=== PATIENT | female | born 1950 | race Caucasian/White ===

== ENCOUNTER 2017-01-01 10:23 | Emergency (ER) | payer BC ==
--- NOTE | 2017-01-01 11:21 | ED Physician Documentation ---
History of Present Illness - Stated complaint Stated Complaint: SWELLING ABDOMEN AREA - Chief complaint Chief Complaint: Abd Pain - History obtained from History obtained from: Patient, Family - History of Present Illness Timing: How many weeks ago (1) - Additonal information Additional information: 66-year-old female with a history of endometrial cancer with pulmonary metastases and vaginal recurrence has developed abdominal swelling decreased appetite and abdominal pain.She has recently finished a course of palliative radiation therapy for a vaginal recurrence of her cancer. Review of Systems Constitutional: reports: Fatigue, Sweats. denies: Fever Eyes: denies: Decreased vision Ears: denies: Ear pain Nose: denies: Rhinorrhea / runny nose, Congestion Throat: denies: Sore throat Cardiac: denies: Chest pain / pressure, Palpitations Respiratory: reports: Dyspnea. denies: Cough, Wheezing GI: reports: Abdominal Pain, Abdominal Swelling, Nausea. denies: Vomiting, Constipation, Diarrhea : denies: Dysuria, Frequency Skin: denies: Rash Musculoskeletal: reports: Back pain. 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 - Present Medications Home Medications: Ambulatory Orders Medication Instructions Recorded Confirmed Hydrocodone/Acetaminophen 1 - 2 tab PO Q4H PRN 12/30/16 12/30/16 [Hydrocodone-APAP 5-300] LORazepam [Ativan] 0.5 - 1 mg PO RTQPM PRN 12/30/16 12/30/16 Furosemide [Lasix] 40 mg PO DAILY #20 tablet 01/01/17 Potassium Chloride [K-Dur] 20 meq PO DAILY #20 tablet 01/01/17 Sulfamethoxazole/Trimethoprim 1 each PO BID #14 tablet 01/01/17 [Sulfamethoxazole-Tmp Ds Tablet] - Allergies Allergies/Adverse Reactions: Allergies Allergy/AdvReac Type Severity Reaction Status Date / Time No Known Drug Allergies Allergy Verified 01/01/17 10:31 - Social History Does the pt smoke?: No Smoking Status: Never smoker Does the pt drink ETOH?: No Does the pt have substance abuse?: No - Immunizations Immunizations are current?: Yes PD ED PE NORMAL - Vitals Vital signs reviewed: Yes (Tachycardic and hypertensive) - General General: No acute distress, Well developed/nourished - HEENT HEENT: Atraumatic, PERRL - Neck Neck: Supple, no meningeal sign - Cardiac Cardiac: No murmur, Other (Tachycardia to 100) - Respiratory Respiratory: No respiratory distress, Clear bilaterally - Abdomen Abdomen: Soft, Other - Back Back: No CVA TTP, No spinal TTP - Derm Derm: Normal color, Warm and dry, No rash - Extremities Extremities: No deformity, Other (There is pedal edema bilaterally) - Neuro Neuro: Alert and oriented X 3, No motor deficit, No sensory deficit, Normal speech - Psych Psych: Normal mood, Normal affect Results - Vitals Vitals: Vital Signs - 24 hr 01/01/17 01/01/17 01/01/17 10:28 12:17 13:59 Temperature 36.7 C Heart Rate 110 H 84 102 H Respiratory 20 20 16 Rate Blood Pressure 135/85 H 127/70 138/82 H O2 Saturation 96 97 94 Oxygen O2 Source Room air - Labs Labs: Laboratory Tests 01/01/17 01/01/17 01/01/17 11:30 11:30 11:30 WBC 6.5 RBC 4.00 L Hgb 12.5 Hct 37.1 MCV 92.6 MCH 31.2 H MCHC 33.7 RDW 12.9 Plt Count 291 MPV 8.1 Neut # 5.0 Lymph # 0.6 L [place] # 0.8 Eos # 0.1 Baso # 0.1 Absolute Nucleated RBC 0.00 Nucleated RBCs 0.0 Sodium 137 Potassium 3.5 Chloride 98 L Carbon Dioxide 28 Anion Gap 11.0 BUN 20 Creatinine 0.6 Estimated GFR (MDRD) 101 Glucose 109 H Calcium 9.0 Total Bilirubin 0.8 AST 18 ALT 15 Alkaline Phosphatase 67 Total Protein 6.0 L Albumin 3.0 L Globulin 3.0 Albumin/Globulin Ratio 1.0 Lipase 24 Urine Color YELLOW Urine Clarity HAZY Urine pH 6.0 Ur Specific [place] 1.020 Urine Protein NEGATIVE Urine Glucose (UA) NEGATIVE Urine Ketones 15 H Urine Occult Blood SMALL H Urine Nitrite NEGATIVE Urine Bilirubin NEGATIVE Urine Urobilinogen 0.2 (NORMAL) Ur Leukocyte Esterase SMALL H Urine RBC 0-5 Urine WBC 11-25 H Ur Squamous Epith Cells RARE Squamous Urine Bacteria Few Urine Mucus Moderate Strands Ur Microscopic Review INDICATED Urine Culture Comments INDICATED PD MEDICAL DECISION MAKING - ED course Complexity details: reviewed old records, reviewed results, re-evaluated patient , considered differential, d/w patient, d/w family ED course: 66-year-old female with recurrent uterine cancer has developed ascites and is having decreased appetite abdominal swelling discomfort and shortness of breath.She has done some palliative radiation therapy for recurrence of cancer in the vaginal area she has known metastases to the lungs. She had done the palliative radiation therapy and not chemotherapy.Here in the emergency room today she on examination appears to have pleural effusion on the right and this is confirmed on x-ray with bilateral pleural effusions that are larger on the right than left but not overwhelming. She does have ascites on bedside examination the ascites is not tense the abdomen is distended and the patient is uncomfortable. She does have some trace edema in her legs as well and here in the emergency department she is administered Lasix intravenously. We did discuss with her that this will be dehydrating and she will need to take some potassium as well. We discussed palliative paracentesis and she is not ready at this time for a paracentesis. She does not require thoracentesis today and she may require both of these procedures in the near future. We discussed access point for this being through interventional radiology through the oncology clinic as she may also benefit from palliative chemotherapy. Today she has urinary tract infection as well and she is administered intravenous Rocephin. Departure - Departure Disposition: 01 Home, Self Care Clinical Impression: Pleural effusion Urinary tract infection Qualifiers: Urinary tract infection type: acute cystitis Hematuria presence: without hematuria Qualified Code(s): N30.00 - Acute cystitis without hematuria Ascites Qualifiers: Ascites type: malignant Qualified Code(s): R18.0 - Malignant ascites Instructions: ED UTI Cystitis Female, ED Effusion Pleural, ED Ascites Follow-Up: Juanita Garg PA-C [Primary Care Provider] - Prescriptions: Potassium Chloride [K-Dur] 20 meq PO DAILY #20 tablet Furosemide [Lasix] 40 mg PO DAILY #20 tablet Sulfamethoxazole/Trimethoprim [Sulfamethoxazole-Tmp Ds Tablet] 1 each PO BID # 14 tablet Discharge Date/Time: 01/01/17 14:28
[2017-01-01] MEDS ORDERED: SODIUM CHLORIDE FLUSH 0.9% 10 ML SYRINGE IVP ONE (11:28)
[2017-01-01] MEDS ORDERED: FUROSEMIDE 40 MG/4 ML VIAL IVP STA (11:35)
[2017-01-01] MEDS ORDERED: FUROSEMIDE 40 MG/4 ML VIAL ONE (11:48)
--- NOTE | 2017-01-01 11:54 | XRAY Preliminary Report ---
Exam: XR Chest 2 View PA/LAT IMPRESSION: Small, right larger than left pleural effusions with adjacent opacity/atelectasis. [facility] SITE ID: [id number]
--- NOTE | 2017-01-01 11:57 | XRAY Report ---
EXAM: CHEST RADIOGRAPHY EXAM DATE: 01/01/2017 11:20 AM. CLINICAL HISTORY: Decreased breath sounds right. . COMPARISON: 03/30/2012. TECHNIQUE: 2 views. FINDINGS: Lungs/Pleura: There are small bilateral pleural effusions with adjacent opacity/atelectasis, right gr eater than left. No pneumothorax. Mediastinum: Heart and mediastinal contours are unremarkable. Other: Right chest port with distal catheter tip at the cavoatrial junction. IMPRESSION: Small, right larger than left pleural effusions with adjacent opacity/atelectasis. [facility] Referring Provider Line: [phone] SITE ID: [id number]
[2017-01-01 11:58] LABS: BASOPHILS # (AUTO) 0.1 10^3/uL (0.0-0.1); BASOPHILS % (AUTO) 0.8 %; EOSINOPHILS # (AUTO) 0.1 10^3/uL (0.0-0.7); HCT - HEMATOCRIT 37.1 % (37.0-47.0); HGB - HEMOGLOBIN 12.5 g/dL (12.0-16.0); LYMPHOCYTES # (AUTO) 0.6 10^3/uL (1.5-3.5); LYMPHOCYTES % (AUTO) 9.6 %; MEAN CORPUSCULAR HEMOGLOBIN 31.2 pg (27.0-31.0); MEAN CORPUSCULAR HGB CONC 33.7 g/dL (32.0-36.0); MEAN CORPUSCULAR VOLUME 92.6 fL (81.0-99.0); MEAN PLATELET VOLUME 8.1 fL (7.9-10.8); MONOCYTES # (AUTO) 0.8 10^3/uL (0.0-1.0); MONOCYTES % (AUTO) 12.1 %; NEUTROPHILS % (AUTO) 76.5 %; RED CELL DISTRIBUTION WIDTH 12.9 % (12.0-15.0); UNCORRECTED WHITE BLOOD COUNT 6.5 x10^3/uL; WHITE BLOOD COUNT 6.5 x10^3/uL (4.8-10.8)
[2017-01-01 12:11] LABS: BILIRUBIN,TOTAL 0.8 mg/dL (0.2-1.0); CREATININE 0.6 mg/dL (0.4-1.0); POTASSIUM 3.5 mmol/L (3.5-5.0)
[2017-01-01 12:40] LABS: BILIRUBIN,URINE NEGATIVE (NEGATIVE); UA w/ MICROSCOPIC CHARGE YES
[2017-01-01 12:42] LABS: UR CULTURE IF IND INDICATED
[2017-01-01] MEDS ORDERED: cefTRIAXone 1 GM in SODIUM CHLORIDE 0.9% MINIBAG 100 ML IV STA (12:45)
[2017-01-01] MEDS ORDERED: cefTRIAXone 1 GM VIAL ONE (13:09)
[2017-01-01 14:00] VITALS: BP 138/82
== END 2017-01-01 14:28 | disposition home or self-care (01) ==
LOC: ED 10:23
DX: N30.00 Acute cystitis without hematuria (principal); C54.1 Malignant neoplasm of endometrium; C78.00 Secondary malignant neoplasm of unspecified lung; J90 Pleural effusion, not elsewhere classified; Z92.3 Personal history of irradiation
CPT/HCPCS: 36415; 71020; 80053; 81001; 81003; 83690; 85025; 87086; 96365; 96375; 99283; 99284

== ENCOUNTER 2017-01-03 11:47 | Emergency (ER) | payer BC ==
--- NOTE | 2017-01-03 15:32 | ED Physician Documentation ---
PD HPI NVD - Stated complaint Stated Complaint: VOMITTING, BLOATING, COUGH - Chief complaint Chief Complaint: Abd Pain - History obtained from History obtained from: Patient - History of Present Illness Timing - onset: How many weeks ago (1) Timing - duration: Weeks (1) Timing - details: Gradual onset, Waxing and waning Associated symptoms: Abdominal pain (has had feeling of abd fullness and bloating with vomiting and poor PO tolerance.). No: Fever Contributing factors: No: Sick contact, Bad food Improved by: Vomiting Worsened by: Eating Recently seen: Emergency Dept Review of Systems Constitutional: denies: Fever, Chills Nose: denies: Rhinorrhea / runny nose, Congestion Throat: denies: Sore throat Cardiac: denies: Chest pain / pressure Respiratory: denies: Cough GI: reports: Abdominal Pain, Abdominal Swelling, Nausea, Vomiting. denies: Constipation, Diarrhea : denies: Dysuria, Frequency Skin: denies: Rash, Lesions Neurologic: reports: Generalized weakness. 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 - Present Medications Home Medications: Ambulatory Orders Medication Instructions Recorded Confirmed Hydrocodone/Acetaminophen 1 - 2 tab PO Q4H PRN 12/30/16 01/03/17 [Hydrocodone-APAP 5-300] LORazepam [Ativan] 0.5 - 1 mg PO RTQPM PRN 12/30/16 01/03/17 Furosemide [Lasix] 40 mg PO DAILY #20 tablet 01/01/17 01/03/17 Potassium Chloride [K-Dur] 20 meq PO DAILY #20 tablet 01/01/17 01/03/17 Sulfamethoxazole/Trimethoprim 1 each PO BID #14 tablet 01/01/17 01/03/17 [Sulfamethoxazole-Tmp Ds Tablet] Famotidine [Pepcid] 20 mg PO BID #30 tablet 01/03/17 Metoclopramide [Reglan] 10 mg PO Q6H #20 tablet 01/03/17 - Allergies Allergies/Adverse Reactions: Allergies Allergy/AdvReac Type Severity Reaction Status Date / Time No Known Drug Allergies Allergy Verified 01/01/17 10:31 - Social History Does the pt smoke?: No Smoking Status: Never smoker Does the pt drink ETOH?: No Does the pt have substance abuse?: No - Family History Family history: reports: Non contributory - Immunizations Immunizations are current?: Yes PD ED PE NORMAL - Vitals Vital signs reviewed: Yes - General General: Alert and oriented X 3, Well developed/nourished - HEENT HEENT: PERRL (nonicteric), Ears normal, Moist mucous membranes, Pharynx benign - Neck Neck: Supple, no meningeal sign, No adenopathy - Cardiac Cardiac: RRR, No murmur - Respiratory Respiratory: Clear bilaterally - Abdomen Abdomen: Soft, Other (distended moderately with shifting dullness to percussion. generally tender without focal tenderness. No percussion tenderness. Scattered but decreased bowel sounds. ) - Female Female : Deferred - Rectal Rectal: Deferred - Back Back: No CVA TTP - Derm Derm: Normal color, Warm and dry - Extremities Extremities: No edema, No calf tenderness / cord - Neuro Neuro: Alert and oriented X 3, No motor deficit, Normal speech Results - Vitals Vitals: Oxygen O2 Source Room air - Labs Labs: Laboratory Tests 01/03/17 01/03/17 16:48 16:48 WBC 7.9 RBC 3.89 L Hgb 12.2 Hct 36.3 L MCV 93.5 MCH 31.4 H MCHC 33.6 RDW 12.7 Plt Count 320 MPV 8.2 Neut # 6.4 Lymph # 0.6 L [place] # 0.7 Eos # 0.0 Baso # 0.0 Absolute Nucleated RBC 0.00 Nucleated RBCs 0.1 Sodium 134 L Potassium 3.6 Chloride 96 L Carbon Dioxide 28 Anion Gap 10.0 BUN 21 H Creatinine 0.9 Estimated GFR (MDRD) 63 L Glucose 105 H Calcium 8.4 L Magnesium 1.9 Total Bilirubin 1.1 H AST 17 ALT 14 Alkaline Phosphatase 68 Total Protein 5.8 L Albumin 2.9 L Globulin 2.9 Albumin/Globulin Ratio 1.0 Lipase 20 L - Rads (name of study) abd and chest CT Radiology: Prelim report reviewed (multiple lung nodules, also multiple peritoneal and omental lesions c/w mets) Procedures - Paracentesis Preparation: Consent obtained (verbal), Ultrasound guidance, Sterile prep and drape, Local anesthesia Location: RLQ Technique: Catheter over needle Fluid: Clear (I got initial fluid back in syringe as inserting the catheter, but then did not get further fluid out once the catheter was advanced over the needle. U/S showed it to be in the peritoneal cavity and not near loop of bowel , so I don't know why it did not drain. We opted to discontinue at that point. No signs of bleeding. No increased abd pain. So only about 10 ml of fluid obtained.), Volume - enter cc (10). No: Sent for cell count Aftercare: Dressing applied, Other (unable to get flow out from catheter once advanced, even though seemed to be in correct position. Procedure discontinued at that point.) PD MEDICAL DECISION MAKING - ED course Complexity details: reviewed results (CT showing that her cancer has progressed with multiple mets in peritoneum and omentum and lung. Presume ascites is then from those irritations (carcinomatosis) and may be resulting in ileus pattern. CT does not show any obstruction pattern. ), considered differential, d/w patient, d/w [facility] consultant (Dr. Mccromick ([facility]?) Oncology, who thought her symptoms might be ileus due to the carcinomatosis, which would seem reasonable since she does not have tense ascites, but could be from the ascites. She suggested paracentesis could be worth a try to see if helps symptoms. ) Departure - Departure Disposition: 01 Home, Self Care Clinical Impression: Abdominal carcinomatosis Ascites Qualifiers: Ascites type: malignant Qualified Code(s): R18.0 - Malignant ascites Vomiting Qualifiers: Vomiting type: unspecified Vomiting Intractability: non-intractable Nausea presence: with nausea Qualified Code(s): R11.2 - Nausea with vomiting, unspecified Abdominal pain Qualifiers: Abdominal location: generalized Qualified Code(s): R10.84 - Generalized abdominal pain Condition: Stable Record reviewed to determine appropriate education?: Yes Follow-Up: Juanita Garg PA-C [Primary Care Provider] - oJsep Reilly MD [Physician No Access] - Prescriptions: Famotidine [Pepcid] 20 mg PO BID #30 tablet Metoclopramide [Reglan] 10 mg PO Q6H #20 tablet Comments: Continue usual medications. Add famotidine twice daily for the next 7-10 days. Metoclopramide 4 times a day to help reduce nausea and improve peristalsis. Call Dr. Reilly's office tomorrow for follow-up and further evaluation and treatment. Discharge Date/Time: 01/03/17 22:20
[2017-01-03] MEDS ORDERED: HYDROmorphone 1 MG/ML CARPUJECT IVP STA (15:52)
[2017-01-03] MEDS ORDERED: ONDANSETRON 4 MG/2 ML VIAL IVP STA ×2 (15:52→20:46)
[2017-01-03] MEDS ORDERED: SODIUM CHLORIDE 0.9% 1,000 ML IV ONE ×2 (15:52→18:44)
[2017-01-03] MEDS ORDERED: HYDROmorphone 1 MG/ML CARPUJECT ONE (16:30)
[2017-01-03] MEDS ORDERED: ONDANSETRON 4 MG/2 ML VIAL ONE ×2 (16:30→20:53)
[2017-01-03] MEDS ORDERED: SODIUM CHLORIDE FLUSH 0.9% 10 ML SYRINGE IVP ONE ×2 (16:31→20:53)
[2017-01-03 17:03] LABS: BASOPHILS % (AUTO) 0.6 %; EOSINOPHILS % (AUTO) 0.2 %; HCT - HEMATOCRIT 36.3 % (37.0-47.0); HGB - HEMOGLOBIN 12.2 g/dL (12.0-16.0); LYMPHOCYTES # (AUTO) 0.6 10^3/uL (1.5-3.5); LYMPHOCYTES % (AUTO) 8.3 %; MEAN CORPUSCULAR HEMOGLOBIN 31.4 pg (27.0-31.0); MEAN CORPUSCULAR HGB CONC 33.6 g/dL (32.0-36.0); MEAN CORPUSCULAR VOLUME 93.5 fL (81.0-99.0); MEAN PLATELET VOLUME 8.2 fL (7.9-10.8); MONOCYTES # (AUTO) 0.7 10^3/uL (0.0-1.0); MONOCYTES % (AUTO) 9.1 %; NEUTROPHILS # (AUTO) 6.4 10^3/uL (1.5-6.6); NEUTROPHILS % (AUTO) 81.8 %; NUCLEATED RED BLOOD CELLS AUTO 0.1 /100WBC; RED BLOOD COUNT 3.89 10^6/uL (4.20-5.40); RED CELL DISTRIBUTION WIDTH 12.7 % (12.0-15.0); UNCORRECTED WHITE BLOOD COUNT 7.9 x10^3/uL; WHITE BLOOD COUNT 7.9 x10^3/uL (4.8-10.8)
[2017-01-03 17:08] LABS: BILIRUBIN,TOTAL 1.1 mg/dL (0.2-1.0); CALCIUM 8.4 mg/dL (8.5-10.3); CREATININE 0.9 mg/dL (0.4-1.0); MAGNESIUM 1.9 mg/dL (1.7-2.8); POTASSIUM 3.6 mmol/L (3.5-5.0); TOTAL PROTEIN 5.8 g/dL (6.7-8.2)
[2017-01-03] MEDS ORDERED: IOPAMIDOL-300 100 ML VIAL ONE (17:50)
[2017-01-03] MEDS ORDERED: IOPAMIDOL-300 100 ML VIAL IVP ONE (18:22)
--- NOTE | 2017-01-03 18:47 | CT Preliminary Report ---
Exam: CT Chest W/ IMPRESSION: 1. Numerous pulmonary nodules, most compatible with metastatic disease. 2. Right basilar consolidation. Small bilateral pleural effusions. [facility] SITE ID: [id number]
--- NOTE | 2017-01-03 18:50 | CT Report ---
EXAM: CT CHEST EXAM DATE: 01/03/2017 06:28 PM. CLINICAL HISTORY: Cough and dyspnea; h/o pelvic cancer. COMPARISONS: None. TECHNIQUE: Routine helical CT imaging was performed through the chest. IV contrast: 100 cc Isovue-300 . Reconstructions: Sagittal, coronal, and MIP. In accordance with CT protocol optimization, one or more of the following dose reduction techniques w ere utilized for this exam: automated exposure control, adjustment of mA and/or KV based on patient s ize, or use of iterative reconstructive technique. FINDINGS: Lungs/Pleura: Numerous nodules are present throughout both lungs ranging from tiny to 11 mm. Consolid ation in the right base. Small pleural effusions, right more than left. No pneumothorax. Mediastinum: Normal heart size. No pericardial effusion. No coronary artery calcifications. No lympha denopathy. Bones: Unremarkable. Visualized Abdomen: See separate report. Other: Right Port-A-Cath. IMPRESSION: 1. Numerous pulmonary nodules, most compatible with metastatic disease. 2. Right basilar consolidation. Small bilateral pleural effusions. [facility] Referring Provider Line: [phone] SITE ID: [id number]
--- NOTE | 2017-01-03 19:00 | CT Preliminary Report ---
Exam: CT Abdomen/Pelvis W/ IMPRESSION: 1. Extensive metastatic disease to the omentum and peritoneum with moderate ascites. 2. Other chronic or incidental findings. [facility] SITE ID: [id number]
--- NOTE | 2017-01-03 19:02 | CT Report ---
EXAM: CT ABDOMEN AND PELVIS EXAM DATE: 01/03/2017 06:27 PM. CLINICAL HISTORY: Abd pain and bloating; post RT for uterine CA. COMPARISONS: 09/14/2016. TECHNIQUE: Routine helical CT imaging was performed through the abdomen and pelvis. IV contrast: 100 cc Isovue-300. Enteric contrast: No. Reconstructions: Coronal and sagittal. In accordance with CT protocol optimization, one or more of the following dose reduction techniques w ere utilized for this exam: automated exposure control, adjustment of mA and/or KV based on patient s ize, or use of iterative reconstructive technique. FINDINGS: Lung Bases: See separate report. Liver: Cysts and hemangioma as previously described. Otherwise unremarkable. Gallbladder/Bile Ducts: Unremarkable. Spleen: Normal. Pancreas: Normal. Adrenal Glands: Normal. Kidneys: Tiny right renal cyst. Otherwise unremarkable. No masses or hydronephrosis. Peritoneal Cavity/Bowel: Moderate amount of ascites. No free air. Prominent omental caking with numer ous nodular densities anteriorly and along the mural surface a lesion in the anterior right upper angelica drant measures 17 mm on axial image 20. Numerous small densities in the mesentery may represent mesen teric lymphadenopathy. No periaortic lymphadenopathy. Mild colonic diverticulosis. Normal appendix. N o bowel dilation. Pelvic Organs: Unremarkable decompressed urinary bladder. Absent uterus. Vasculature: No aneurysms or other significant abnormality. Bones: No significant abnormality. Other: None. IMPRESSION: 1. Extensive metastatic disease to the omentum and peritoneum with moderate ascites. 2. Other chronic or incidental findings. [facility] Referring Provider Line: [phone] SITE ID: [id number]
[2017-01-03] MEDS ORDERED: MAG HYDROX/AL HYDROX/SIMETH 30 ML UDC PO STA (20:33)
[2017-01-03] MEDS ORDERED: MAG HYDROX/AL HYDROX/SIMETH 30 ML UDC ONE (20:38)
[2017-01-03] MEDS ORDERED: PROMETHAZINE INJ 12.5 MG in SODIUM CHLORIDE 0.9% 50 ML IV STA (20:46)
[2017-01-03] MEDS ORDERED: PROMETHAZINE 25 MG/1 ML VIAL ONE (20:53)
[2017-01-03] MEDS ORDERED: SODIUM CHLORIDE 0.9% MINIBAG 100 ML IV ONE (20:53)
[2017-01-03] MEDS ORDERED: FAMOTIDINE 20 MG TABLET PO STA (21:31)
[2017-01-03] MEDS ORDERED: FAMOTIDINE 20 MG TABLET ONE (21:50)
[2017-01-03 22:36] VITALS: BP 120/60
== END 2017-01-03 22:20 | disposition home or self-care (01) ==
LOC: ED 11:47
DX: C80.0 Disseminated malignant neoplasm, unspecified (principal); C78.6 Secondary malignant neoplasm of retroperitoneum and peritoneum; R18.0 Malignant ascites; R11.2 Nausea with vomiting, unspecified; R10.84 Generalized abdominal pain
CPT/HCPCS: 36415; 49083; 71260; 74177; 80053; 83690; 83735; 85025; 96374; 96375; 96376; 99284; A9270; J1170; J7040; Q9967; 49082

== ENCOUNTER 2017-01-26 16:09 | Outpatient (CLI) | payer BC ==
[2017-01-26 15:46] LABS: INR 1.2 (0.8-1.2); PT - PROTHROMBIN TIME 13.3 secs (9.9-12.6)
[2017-01-26 15:53] LABS: PARTIAL THROMBOPLASTIN TIME 24.4 secs (24.9-33.3)
== END 2017-01-26 16:10 | disposition home or self-care (01) ==
LOC: LAB.R 16:09
PROVIDERS: ATTEND Nurse Practitioner Adult Health
DX: R18.0 Malignant ascites (principal)
CPT/HCPCS: 85610; 85730

== ENCOUNTER 2017-01-27 08:12 | Outpatient (CLI) | payer BC ==
--- NOTE | 2017-01-27 10:11 | Ultrasound Report ---
PARACENTESIS WITH ULTRASOUND GUIDANCE: 01/27/2017 CLINICAL INDICATION: Malignant ascites. FINDINGS: Following obtaining informed consent, a suitable site in the patient's right lower quadran t was selected with ultrasound. The skin was prepped and draped in the usual sterile fashion. The s kin and soft tissues were anesthetized with buffered lidocaine. A [id number] catheter was inser sherri into the peritoneal cavity, and approximately 2700 mL of fluid was removed without difficulty. T he patient tolerated the procedure well. No immediate complications. IMPRESSION: SUCCESSFUL THERAPEUTIC PARACENTESIS, YIELDING APPROXIMATELY 2700 ML OF FLUID. JOB #: [id number] EXT JOB #:[id number]
[2017-01-27 10:33] VITALS: BP 104/61
[2017-01-27] MEDS ORDERED: BUFFERED LIDOCAINE 10 ML SYRINGE IU ONE (14:01)
== END 2017-01-27 08:13 | disposition home or self-care (01) ==
LOC: DI 08:12
PROVIDERS: ATTEND Nurse Practitioner Adult Health
DX: R18.0 Malignant ascites (principal)
CPT/HCPCS: 49083